=== PATIENT | male | born 1975 | race Caucasian/White ===

== ENCOUNTER 2022-10-15 12:02 | Inpatient (IN) | payer MEDICAID ==
[~2022-10-15] VITALS: Ht 172.7 cm; Wt 81.6 kg
[2022-10-15 14:58] LABS: BASOPHILS % 0.2 % (0.0-2.0); EOSINOPHILS % 2.7 % (0.0-5.0); LYMPHOCYTES % 14.7 % (20.0-50.0); MEAN CORPUSCULAR VOLUME 88.9 fL (80.0-94.0); MEAN PLATELET VOLUME 8.5 fl (7.4-10.4); MONOCYTES % 7.3 % (2.0-8.0); NEUTROPHILS % 75.1 % (40.0-76.0); PLATELET 62 x1000/uL (130-400); RED BLOOD CELL COUNT 2.59 mill/uL (4.7-6.1); RED CELL DISTRIBUTION WIDTH 16.6 % (11.6-14.6)
[2022-10-15] MEDS ORDERED: ACET-2708 MT (15:52)
[2022-10-15] MEDS ORDERED: ACETAMINOPHEN 325MG TABLET PO ONE (16:00)
[2022-10-15] MEDS ORDERED: DEXTROSE 50% WATER 50ML SYRINGE IV PRN (22:00)
[2022-10-15] MEDS ORDERED: IPRATROPIUM/ALBUTEROL 0.5-3(2.5)MG/3ML NEB HHN SCH (22:00)
[2022-10-15] MEDS ORDERED: ENOXAPARIN 40MG/0.4ML SYR SUBCUT SCH (22:00)
[2022-10-15] MEDS ORDERED: LORAZEPAM 2MG/ML CPJ IV PRN (22:00)
[2022-10-15] MEDS ORDERED: ACETAMINOPHEN 325MG TABLET PO PRN (22:00)
[2022-10-15] MEDS ORDERED: CLONIDINE 0.1MG TABLET PO PRN (22:00)
[2022-10-15 22:40] LABS: PHOSPHORUS 3.9 mg/dL (2.5-4.9)
[2022-10-15 23:32] LABS: BASOPHILS % 0.2 % (0.0-2.0); EOSINOPHILS % 2.8 % (0.0-5.0); HEMATOCRIT. 25.7 % (42.0-52.0); LYMPHOCYTES % 14.7 % (20.0-50.0); MEAN CORPUSCULAR HEMOGLOBIN 30.9 pg (28.0-32.0); MEAN CORPUSCULAR VOLUME 88.2 fL (80.0-94.0); MEAN PLATELET VOLUME 8.2 fl (7.4-10.4); MONOCYTES % 8.2 % (2.0-8.0); NEUTROPHILS % 74.1 % (40.0-76.0); PLATELET 79 x1000/uL (130-400); RED BLOOD CELL COUNT 2.91 mill/uL (4.7-6.1); RED CELL DISTRIBUTION WIDTH 16.8 % (11.6-14.6)
[2022-10-15 23:40] LABS: INR 1.5; PARTIAL THROMBOPLASTIN TIME 49.8 sec (23.4-31.0); PROTHROMBIN TIME 15.7 sec (9.6-11.0)
[2022-10-15 23:48] LABS: CREATINE KINASE 70 IU/L (39-308); CREATINE KINASE MB FRACTION 2.5 ng/mL (0.5-3.6)
[2022-10-16] MEDS ORDERED: MAGNESIUM 1 G PREMIX 100 ML IV NR
[2022-10-16 04:15] VITALS: BP 130/61
[2022-10-16] MEDS: BLOOD SUGAR DIAGNOSTIC STRIP TEST SCH ×4 (06:30→21:00)
[2022-10-16 08:00] VITALS: BP 117/55
[2022-10-16] MEDS: SODIUM BICARBONATE 650 MG TABLET PO SCH (09:47)
[2022-10-16] MEDS: FAMOTIDINE 20MG TABLET PO SCH (09:47)
[2022-10-16 10:32] LABS: BASOPHILS % 0.4 % (0.0-2.0); EOSINOPHILS % 3.6 % (0.0-5.0); HEMATOCRIT. 22.9 % (42.0-52.0); LYMPHOCYTES % 18.2 % (20.0-50.0); MEAN CORPUSCULAR HEMOGLOBIN 30.7 pg (28.0-32.0); MEAN CORPUSCULAR VOLUME 87.4 fL (80.0-94.0); MEAN PLATELET VOLUME 8.1 fl (7.4-10.4); MONOCYTES % 8.1 % (2.0-8.0); NEUTROPHILS % 69.7 % (40.0-76.0); PLATELET 76 x1000/uL (130-400); RED BLOOD CELL COUNT 2.62 mill/uL (4.7-6.1); RED CELL DISTRIBUTION WIDTH 17.1 % (11.6-14.6)
[2022-10-16 10:52] LABS: CREATINE KINASE MB FRACTION 2.8 ng/mL (0.5-3.6)
[2022-10-16 12:00] VITALS: BP 128/56
[2022-10-16 16:00] VITALS: BP 125/60
[2022-10-16] MEDS ORDERED: DEXTROSE 50% WATER 50ML SYRINGE IV PRN (17:15)
[2022-10-16] MEDS: INSULIN LISPRO 100 UNITS/ML SUBCUT SCH ×2 (17:50→22:00)
[2022-10-16 20:00] VITALS: BP 124/67
[2022-10-17] VITALS: BP 120/50
[2022-10-17] MEDS: SODIUM CHLORIDE 0.45% 1,000 ML IV SCH ×3 (02:50→23:15)
[2022-10-17 03:05] LABS: CHLORIDE 107 mEq/L (98-107)
[2022-10-17 03:16] LABS: CREATINE KINASE 46 IU/L (39-308); CREATINE KINASE MB FRACTION 2.7 ng/mL (0.5-3.6); ETHANOL BLOOD < 10 mg/dL
[2022-10-17] MEDS: BLOOD SUGAR DIAGNOSTIC STRIP TEST SCH ×4 (06:29→21:14)
[2022-10-17] MEDS: INSULIN LISPRO 100 UNITS/ML SUBCUT SCH ×4 (07:39→21:13)
[2022-10-17] MEDS: ALBUTEROL (0.083%) 2.5MG/3ML NEB HHN SCH ×4 (07:41→20:13)
[2022-10-17] MEDS: IPRATROPIUM BROMIDE (0.02%) 0.5MG/2.5ML NEB HHN SCH ×4 (07:41→20:13)
[2022-10-17 07:55] LABS: BASOPHILS % 0.3 % (0.0-2.0); EOSINOPHILS % 4.6 % (0.0-5.0); HEMATOCRIT. 24.4 % (42.0-52.0); HEMOGLOBIN. 8.4 g/dL (14.0-18.0); LYMPHOCYTES % 23.5 % (20.0-50.0); MEAN CORPUSCULAR HEMOGLOBIN 30.5 pg (28.0-32.0); MEAN CORPUSCULAR VOLUME 88.4 fL (80.0-94.0); MEAN PLATELET VOLUME 7.6 fl (7.4-10.4); MONOCYTES % 8.6 % (2.0-8.0); PLATELET 95 x1000/uL (130-400); RED BLOOD CELL COUNT 2.76 mill/uL (4.7-6.1); RED CELL DISTRIBUTION WIDTH 16.9 % (11.6-14.6)
[2022-10-17] MEDS: SODIUM BICARBONATE 650 MG TABLET PO SCH (08:49)
[2022-10-17] MEDS: FAMOTIDINE 20MG TABLET PO SCH (08:49)
[2022-10-17 09:05] LABS: T4 FREE 1.62 ng/dL (0.76-1.46)
[2022-10-17 09:14] LABS: VITAMIN B12 SERUM 1383 pg/mL (211-911)
[2022-10-17 12:00] VITALS: BP 120/50
[2022-10-17 15:58] VITALS: BP 128/59
[2022-10-18] MEDS: ALBUTEROL (0.083%) 2.5MG/3ML NEB HHN SCH ×7 (00:48→21:42)
[2022-10-18] MEDS: IPRATROPIUM BROMIDE (0.02%) 0.5MG/2.5ML NEB HHN SCH ×7 (00:49→21:42)
[2022-10-18 04:00] VITALS: BP 121/59
[2022-10-18] MEDS: BLOOD SUGAR DIAGNOSTIC STRIP TEST SCH ×4 (06:24→20:59)
[2022-10-18 07:21] LABS: BASOPHILS % 0.5 % (0.0-2.0); EOSINOPHILS % 2.8 % (0.0-5.0); HEMATOCRIT. 21.2 % (42.0-52.0); HEMOGLOBIN. 7.5 g/dL (14.0-18.0); LYMPHOCYTES % 23.3 % (20.0-50.0); MEAN CORPUSCULAR VOLUME 87.3 fL (80.0-94.0); MONOCYTES % 7.7 % (2.0-8.0); NEUTROPHILS % 65.7 % (40.0-76.0); PLATELET 79 x1000/uL (130-400); RED BLOOD CELL COUNT 2.43 mill/uL (4.7-6.1); RED CELL DISTRIBUTION WIDTH 16.5 % (11.6-14.6)
[2022-10-18] MEDS: INSULIN LISPRO 100 UNITS/ML SUBCUT SCH ×4 (07:50→20:59)
[2022-10-18 08:00] VITALS: BP 127/52
[2022-10-18 08:00] LABS: HEPATITIS B SURFACE ANTIGEN NEGATIVE
[2022-10-18] MEDS ORDERED: MAGNESIUM 2 G PREMIX 50 ML IV SCH (08:30)
[2022-10-18] MEDS: SODIUM CHLORIDE 0.45% 1,000 ML IV SCH ×2 (09:45→20:54)
[2022-10-18] MEDS: ASCORBIC ACID 250 MG TABLET PO SCH (09:50)
[2022-10-18] MEDS: FAMOTIDINE 20MG TABLET PO SCH (09:50)
[2022-10-18] MEDS: SODIUM BICARBONATE 650 MG TABLET PO SCH ×2 (09:55→14:13)
[2022-10-18 12:00] VITALS: BP 133/56
[2022-10-18 16:00] VITALS: BP 130/66
[2022-10-18 20:00] VITALS: BP 141/79
[2022-10-19] VITALS: BP 141/55
[2022-10-19] MEDS: ALBUTEROL (0.083%) 2.5MG/3ML NEB HHN SCH ×6 (00:52→22:55)
[2022-10-19] MEDS: IPRATROPIUM BROMIDE (0.02%) 0.5MG/2.5ML NEB HHN SCH ×6 (00:52→22:55)
[2022-10-19] MEDS: SODIUM CHLORIDE 0.45% 1,000 ML IV SCH (05:32)
[2022-10-19 07:25] LABS: BASOPHILS % 0.5 % (0.0-2.0); EOSINOPHILS % 4.2 % (0.0-5.0); HEMATOCRIT. 23.9 % (42.0-52.0); HEMOGLOBIN. 8.1 g/dL (14.0-18.0); LYMPHOCYTES % 27.6 % (20.0-50.0); MEAN CORPUSCULAR HEMOGLOBIN 30.6 pg (28.0-32.0); MEAN CORPUSCULAR VOLUME 90.5 fL (80.0-94.0); MONOCYTES % 8.4 % (2.0-8.0); NEUTROPHILS % 59.3 % (40.0-76.0); PLATELET 82 x1000/uL (130-400); RED BLOOD CELL COUNT 2.64 mill/uL (4.7-6.1); RED CELL DISTRIBUTION WIDTH 17.8 % (11.6-14.6)
[2022-10-19 07:37] LABS: PHOSPHORUS 3.6 mg/dL (2.5-4.9)
[2022-10-19] MEDS: INSULIN LISPRO 100 UNITS/ML SUBCUT SCH ×4 (07:50→20:58)
[2022-10-19 08:00] VITALS: BP 140/46
[2022-10-19] MEDS: BLOOD SUGAR DIAGNOSTIC STRIP TEST SCH ×4 (08:02→20:58)
[2022-10-19] MEDS: SODIUM BICARBONATE 650 MG TABLET PO SCH ×2 (09:00→18:48)
[2022-10-19] MEDS: ASCORBIC ACID 250 MG TABLET PO SCH (09:00)
[2022-10-19] MEDS: FAMOTIDINE 20MG TABLET PO SCH (09:00)
[2022-10-19 11:58] VITALS: BP 120/54
[2022-10-19] MEDS ORDERED: MENTHOL/LANOLIN/CALAMINE/ZN OX OINT 71GM TOP PRN (15:00)
[2022-10-19 15:45] VITALS: BP 140/52
[2022-10-19 20:00] VITALS: BP 131/58
[2022-10-20] VITALS: BP 134/58
[2022-10-20] MEDS: IPRATROPIUM BROMIDE (0.02%) 0.5MG/2.5ML NEB HHN SCH ×5 (02:23→20:52)
[2022-10-20] MEDS: ALBUTEROL (0.083%) 2.5MG/3ML NEB HHN SCH ×5 (02:23→20:52)
[2022-10-20] MEDS: BLOOD SUGAR DIAGNOSTIC STRIP TEST SCH ×4 (06:44→21:00)
[2022-10-20 07:36] LABS: BASOPHILS % 0.5 % (0.0-2.0); CHLORIDE 107 mEq/L (98-107); HEMATOCRIT. 21.7 % (42.0-52.0); HEMOGLOBIN. 7.4 g/dL (14.0-18.0); LYMPHOCYTES % 24.2 % (20.0-50.0); MEAN CORPUSCULAR HEMOGLOBIN 30.6 pg (28.0-32.0); MEAN CORPUSCULAR VOLUME 89.3 fL (80.0-94.0); MONOCYTES % 6.5 % (2.0-8.0); NEUTROPHILS % 65.8 % (40.0-76.0); PLATELET 75 x1000/uL (130-400); RED BLOOD CELL COUNT 2.42 mill/uL (4.7-6.1); RED CELL DISTRIBUTION WIDTH 17.3 % (11.6-14.6)
[2022-10-20 07:44] LABS: PHOSPHORUS 3.8 mg/dL (2.5-4.9)
[2022-10-20] MEDS: INSULIN LISPRO 100 UNITS/ML SUBCUT SCH ×4 (07:50→21:00)
[2022-10-20 08:00] VITALS: BP 136/59
[2022-10-20] MEDS: ASCORBIC ACID 250 MG TABLET PO SCH (09:10)
[2022-10-20] MEDS: SODIUM BICARBONATE 650 MG TABLET PO SCH ×3 (09:10→17:00)
[2022-10-20] MEDS: FAMOTIDINE 20MG TABLET PO SCH (09:10)
[2022-10-20 12:00] VITALS: BP 122/52
[2022-10-20 16:00] VITALS: BP 116/74
[2022-10-21] MEDS: ALBUTEROL (0.083%) 2.5MG/3ML NEB HHN SCH ×2 (00:53→05:45)
[2022-10-21] MEDS: IPRATROPIUM BROMIDE (0.02%) 0.5MG/2.5ML NEB HHN SCH ×2 (00:53→05:45)
[2022-10-21 04:00] VITALS: BP 145/63
[2022-10-21 06:54] LABS: HEMATOCRIT 22.6 % (42.0-52.0); HEMOGLOBIN 7.8 g/dL (14.0-18.0); MEAN CORPUSCULAR HEMOGLOBIN 30.8 pg (28.0-32.0); MEAN CORPUSCULAR VOLUME 88.5 fL (80.0-94.0); PLATELET 90 x1000/uL (130-400); RED BLOOD CELL COUNT 2.55 mill/uL (4.7-6.1); RED CELL DISTRIBUTION WIDTH 17.5 % (11.6-14.6)
[2022-10-21] MEDS: BLOOD SUGAR DIAGNOSTIC STRIP TEST SCH ×3 (07:20→17:20)
[2022-10-21 07:37] LABS: CHLORIDE 114 mEq/L (98-107)
[2022-10-21] MEDS: INSULIN LISPRO 100 UNITS/ML SUBCUT SCH ×2 (07:50→12:50)
[2022-10-21 08:00] VITALS: BP 134/53
[2022-10-21] MEDS: ASCORBIC ACID 250 MG TABLET PO SCH (09:00)
[2022-10-21] MEDS: SODIUM BICARBONATE 650 MG TABLET PO SCH ×3 (09:00→17:00)
[2022-10-21] MEDS ORDERED: SODIUM POLYSTYRENE SULFONATE 15 G/60 ML BOT PO SCH (09:00)
[2022-10-21] MEDS: FAMOTIDINE 20MG TABLET PO SCH (09:00)
[2022-10-21 09:10] LABS: HIV SCREEN 4G Non Reactive (Non Reactive)
[2022-10-21 12:00] VITALS: BP 125/50
[2022-10-21 14:08] LABS: A/G RATIO 0.5 (0.7-1.7); ALBUMIN 1.9 g/dL (2.9-4.4); ALPHA-1-GLOBULIN 0.2 g/dL (0.0-0.4); ALPHA-2-GLOBULIN 0.3 g/dL (0.4-1.0); BETA GLOBULIN 0.9 g/dL (0.7-1.3); GAMMA GLOBULINS 2.2 g/dL (0.4-1.8); GLOBULIN TOTAL 3.6 g/dL (2.2-3.9); M-SPIKE Not Observed g/dL (Not Observed); TOTAL PROTEIN SERUM 5.5 g/dL (6.0-8.5)
[2022-10-21 16:00] VITALS: BP 129/50
[2022-10-21 20:00] VITALS: BP 119/59
[2022-10-22] VITALS: BP 145/69
[2022-10-22 04:00] VITALS: BP 128/89
[2022-10-22 08:00] VITALS: BP 134/55
[2022-10-22 08:10] LABS: BASOPHILS % 0.3 % (0.0-2.0); EOSINOPHILS % 2.9 % (0.0-5.0); HEMATOCRIT. 21.6 % (42.0-52.0); HEMOGLOBIN. 7.5 g/dL (14.0-18.0); MEAN CORPUSCULAR HEMOGLOBIN 31.2 pg (28.0-32.0); MEAN CORPUSCULAR VOLUME 89.6 fL (80.0-94.0); MEAN PLATELET VOLUME 7.4 fl (7.4-10.4); MONOCYTES % 6.1 % (2.0-8.0); NEUTROPHILS % 67.7 % (40.0-76.0); PLATELET 82 x1000/uL (130-400); RED BLOOD CELL COUNT 2.42 mill/uL (4.7-6.1); RED CELL DISTRIBUTION WIDTH 17.5 % (11.6-14.6)
[2022-10-22] MEDS ORDERED: LACTULOSE 20G/30ML UDC PO SCH (09:00)
[2022-10-22 09:05] LABS: CHLORIDE 114 mEq/L (98-107)
[2022-10-22 09:12] LABS: PHOSPHORUS 4.1 mg/dL (2.5-4.9)
[2022-10-22 12:00] VITALS: BP 134/57
[2022-10-22] MEDS: FAMOTIDINE 20MG TABLET PO SCH (14:32)
[2022-10-22] MEDS: ASCORBIC ACID 250 MG TABLET PO SCH (14:32)
[2022-10-22] MEDS: SODIUM BICARBONATE 650 MG TABLET PO SCH ×2 (14:32→18:42)
[2022-10-22] MEDS: ARIPIPRAZOLE 5MG TABLET PO SCH (14:32)
[2022-10-22 16:00] VITALS: BP 103/40
[2022-10-22] MEDS: BLOOD SUGAR DIAGNOSTIC STRIP TEST SCH ×2 (17:20→21:00)
[2022-10-22] MEDS: INSULIN LISPRO 100 UNITS/ML SUBCUT SCH ×3 (17:50→21:00)
[2022-10-22 20:00] VITALS: BP 128/68
[2022-10-23 04:00] VITALS: BP 131/78
[2022-10-23 07:14] LABS: BASOPHILS % 0.5 % (0.0-2.0); EOSINOPHILS % 3.6 % (0.0-5.0); HEMOGLOBIN. 7.9 g/dL (14.0-18.0); LYMPHOCYTES % 27.9 % (20.0-50.0); MEAN CORPUSCULAR HEMOGLOBIN 30.8 pg (28.0-32.0); MEAN CORPUSCULAR VOLUME 90.1 fL (80.0-94.0); MEAN PLATELET VOLUME 7.7 fl (7.4-10.4); MONOCYTES % 7.9 % (2.0-8.0); NEUTROPHILS % 60.1 % (40.0-76.0); PLATELET 86 x1000/uL (130-400); RED BLOOD CELL COUNT 2.55 mill/uL (4.7-6.1); RED CELL DISTRIBUTION WIDTH 17.5 % (11.6-14.6)
[2022-10-23] MEDS: BLOOD SUGAR DIAGNOSTIC STRIP TEST SCH ×4 (07:20→21:57)
[2022-10-23] MEDS: INSULIN LISPRO 100 UNITS/ML SUBCUT SCH ×4 (07:50→21:00)
[2022-10-23 08:00] VITALS: BP 141/59
[2022-10-23] MEDS: ASCORBIC ACID 250 MG TABLET PO SCH (09:00)
[2022-10-23] MEDS: FAMOTIDINE 20MG TABLET PO SCH (09:56)
[2022-10-23] MEDS: SODIUM BICARBONATE 650 MG TABLET PO SCH ×3 (09:56→18:12)
[2022-10-23] MEDS: ARIPIPRAZOLE 5MG TABLET PO SCH (09:56)
[2022-10-23] MEDS ORDERED: LACTULOSE ENEMA 1,000ML BOTTLE PR NR (11:15)
[2022-10-23 12:00] VITALS: BP 130/60
[2022-10-23 16:00] VITALS: BP 128/59
[2022-10-23] MEDS ORDERED: LACTULOSE ENEMA 1,000ML BOTTLE PR PRN (18:30)
[2022-10-23 20:00] VITALS: BP 119/87
[2022-10-23] MEDS ORDERED: LACTULOSE 20G/30ML UDC PO SCH (21:00)
[2022-10-24] VITALS: BP 130/62
[2022-10-24 04:00] VITALS: BP 142/67
[2022-10-24 07:11] LABS: HEMATOCRIT 22.5 % (42.0-52.0); HEMOGLOBIN 7.7 g/dL (14.0-18.0); MEAN CORPUSCULAR HEMOGLOBIN 30.6 pg (28.0-32.0); MEAN CORPUSCULAR VOLUME 89.1 fL (80.0-94.0); PLATELET 72 x1000/uL (130-400); RED BLOOD CELL COUNT 2.53 mill/uL (4.7-6.1); RED CELL DISTRIBUTION WIDTH 16.9 % (11.6-14.6)
[2022-10-24] MEDS: BLOOD SUGAR DIAGNOSTIC STRIP TEST SCH ×4 (07:20→21:00)
[2022-10-24 07:48] LABS: PHOSPHORUS 3.9 mg/dL (2.5-4.9)
[2022-10-24] MEDS: INSULIN LISPRO 100 UNITS/ML SUBCUT SCH ×4 (07:50→21:00)
[2022-10-24 08:00] VITALS: BP 123/63
[2022-10-24] MEDS: ASCORBIC ACID 250 MG TABLET PO SCH (09:00)
[2022-10-24] MEDS ORDERED: MAGNESIUM 1 G PREMIX 100 ML IV NR (09:00)
[2022-10-24] MEDS: SODIUM BICARBONATE 650 MG TABLET PO SCH ×3 (09:10→17:03)
[2022-10-24] MEDS: LACTULOSE 20G/30ML UDC PO SCH ×2 (09:10→17:10)
[2022-10-24] MEDS: FAMOTIDINE 20MG TABLET PO SCH (09:10)
[2022-10-24] MEDS: ARIPIPRAZOLE 5MG TABLET PO SCH (09:10)
[2022-10-24 12:00] VITALS: BP 126/50
[2022-10-24 16:00] VITALS: BP 124/60
[2022-10-25] MEDS: BLOOD SUGAR DIAGNOSTIC STRIP TEST SCH ×4 (07:16→21:00)
[2022-10-25] MEDS: INSULIN LISPRO 100 UNITS/ML SUBCUT SCH ×4 (07:50→21:00)
[2022-10-25 08:00] VITALS: BP_SYST 120; BP_SYST 96; BP_DIAS 51; BP_DIAS 56
[2022-10-25] MEDS: ASCORBIC ACID 250 MG TABLET PO SCH (09:00)
[2022-10-25 09:03] LABS: BASOPHILS % 0.4 % (0.0-2.0); EOSINOPHILS % 3.5 % (0.0-5.0); HEMATOCRIT. 23.5 % (42.0-52.0); HEMOGLOBIN. 8.2 g/dL (14.0-18.0); LYMPHOCYTES % 27.7 % (20.0-50.0); MEAN CORPUSCULAR VOLUME 88.5 fL (80.0-94.0); MEAN PLATELET VOLUME 7.6 fl (7.4-10.4); MONOCYTES % 8.9 % (2.0-8.0); NEUTROPHILS % 59.5 % (40.0-76.0); PLATELET 80 x1000/uL (130-400); RED BLOOD CELL COUNT 2.65 mill/uL (4.7-6.1); RED CELL DISTRIBUTION WIDTH 16.9 % (11.6-14.6)
[2022-10-25] MEDS: FAMOTIDINE 20MG TABLET PO SCH (09:13)
[2022-10-25] MEDS: ARIPIPRAZOLE 5MG TABLET PO SCH (09:13)
[2022-10-25] MEDS: SODIUM BICARBONATE 650 MG TABLET PO SCH ×3 (09:13→16:59)
[2022-10-25] MEDS: LACTULOSE 20G/30ML UDC PO SCH ×2 (09:13→16:58)
[2022-10-25 12:00] VITALS: BP 124/51
[2022-10-25 14:11] LABS: PHOSPHORUS 3.7 mg/dL (2.5-4.9)
[2022-10-25 16:00] VITALS: BP 134/59
[2022-10-25] MEDS: LACTULOSE ENEMA 1,000ML BOTTLE PR SCH (16:00)
[2022-10-25 20:00] VITALS: BP 142/63
[2022-10-26] VITALS: BP 131/55
[2022-10-26 04:00] VITALS: BP 124/54
[2022-10-26] MEDS: BLOOD SUGAR DIAGNOSTIC STRIP TEST SCH ×4 (06:57→21:00)
[2022-10-26 07:07] LABS: BASOPHILS % 0.4 % (0.0-2.0); EOSINOPHILS % 3.2 % (0.0-5.0); HEMATOCRIT. 21.9 % (42.0-52.0); HEMOGLOBIN. 7.6 g/dL (14.0-18.0); LYMPHOCYTES % 27.1 % (20.0-50.0); MEAN CORPUSCULAR HEMOGLOBIN 30.8 pg (28.0-32.0); MEAN CORPUSCULAR VOLUME 88.4 fL (80.0-94.0); MONOCYTES % 8.4 % (2.0-8.0); NEUTROPHILS % 60.9 % (40.0-76.0); PLATELET 65 x1000/uL (130-400); RED BLOOD CELL COUNT 2.47 mill/uL (4.7-6.1); RED CELL DISTRIBUTION WIDTH 17.4 % (11.6-14.6)
[2022-10-26] MEDS: INSULIN LISPRO 100 UNITS/ML SUBCUT SCH ×3 (07:50→21:00)
[2022-10-26 08:00] VITALS: BP 116/56
[2022-10-26 08:06] LABS: PHOSPHORUS 3.8 mg/dL (2.5-4.9)
[2022-10-26] MEDS: FAMOTIDINE 20MG TABLET PO SCH (09:00)
[2022-10-26] MEDS: ASCORBIC ACID 250 MG TABLET PO SCH (09:00)
[2022-10-26] MEDS: ARIPIPRAZOLE 5MG TABLET PO SCH (09:00)
[2022-10-26] MEDS: LACTULOSE 20G/30ML UDC PO SCH ×2 (09:00→17:32)
[2022-10-26] MEDS: SODIUM BICARBONATE 650 MG TABLET PO SCH ×2 (10:42→17:33)
[2022-10-26 12:00] VITALS: BP 125/51
[2022-10-26] MEDS ORDERED: MAGNESIUM OXIDE 400MG TABLET PO SCH (12:45)
[2022-10-26 16:00] VITALS: BP 118/59
[2022-10-26] MEDS: MAGNESIUM OXIDE 400MG TABLET PO SCH (17:00)
[2022-10-26 20:00] VITALS: BP 129/51
[2022-10-27] VITALS: BP 123/55
[2022-10-27 04:00] VITALS: BP 125/44
[2022-10-27 06:30] LABS: BASOPHILS % 0.5 % (0.0-2.0); EOSINOPHILS % 3.1 % (0.0-5.0); HEMATOCRIT. 21.7 % (42.0-52.0); HEMOGLOBIN. 7.4 g/dL (14.0-18.0); LYMPHOCYTES % 30.3 % (20.0-50.0); MEAN CORPUSCULAR HEMOGLOBIN 30.9 pg (28.0-32.0); MEAN CORPUSCULAR VOLUME 90.5 fL (80.0-94.0); MEAN PLATELET VOLUME 7.4 fl (7.4-10.4); MONOCYTES % 10.1 % (2.0-8.0); PLATELET 73 x1000/uL (130-400); RED CELL DISTRIBUTION WIDTH 17.5 % (11.6-14.6)
[2022-10-27 06:39] LABS: PHOSPHORUS 3.9 mg/dL (2.5-4.9)
[2022-10-27] MEDS: BLOOD SUGAR DIAGNOSTIC STRIP TEST SCH ×4 (07:20→20:15)
[2022-10-27] MEDS: INSULIN LISPRO 100 UNITS/ML SUBCUT SCH ×4 (07:50→20:15)
[2022-10-27 08:00] VITALS: BP 131/51
[2022-10-27] MEDS: MAGNESIUM OXIDE 400MG TABLET PO SCH ×2 (09:00→17:50)
[2022-10-27] MEDS: ASCORBIC ACID 250 MG TABLET PO SCH (09:00)
[2022-10-27] MEDS: FAMOTIDINE 20MG TABLET PO SCH (09:19)
[2022-10-27] MEDS: SODIUM BICARBONATE 650 MG TABLET PO SCH ×3 (09:19→17:49)
[2022-10-27] MEDS: ARIPIPRAZOLE 5MG TABLET PO SCH (09:19)
[2022-10-27] MEDS: LACTULOSE 20G/30ML UDC PO SCH ×2 (09:20→17:49)
[2022-10-27] MEDS ORDERED: MAGNESIUM 2 G PREMIX 50 ML IV NR (10:00)
[2022-10-27 12:00] VITALS: BP 133/68
[2022-10-27 16:00] VITALS: BP 108/50
[2022-10-27 20:00] VITALS: BP 114/53
[2022-10-28] VITALS: BP 122/49
[2022-10-28 04:00] VITALS: BP 126/51
[2022-10-28] MEDS: BLOOD SUGAR DIAGNOSTIC STRIP TEST SCH ×4 (05:41→21:00)
[2022-10-28] MEDS: INSULIN LISPRO 100 UNITS/ML SUBCUT SCH ×4 (05:42→21:00)
[2022-10-28 07:11] LABS: HEMOGLOBIN 7.3 g/dL (14.0-18.0); MEAN CORPUSCULAR HEMOGLOBIN 31.2 pg (28.0-32.0); MEAN CORPUSCULAR VOLUME 87.4 fL (80.0-94.0); PLATELET 52 x1000/uL (130-400); RED BLOOD CELL COUNT 2.35 mill/uL (4.7-6.1); RED CELL DISTRIBUTION WIDTH 17.2 % (11.6-14.6)
[2022-10-28 08:00] VITALS: BP 123/50
[2022-10-28 08:45] LABS: HEMATOCRIT 20.5 % (42.0-52.0)
[2022-10-28] MEDS: LACTULOSE ENEMA 1,000ML BOTTLE PR SCH (09:00)
[2022-10-28] MEDS: LACTULOSE 20G/30ML UDC PO SCH ×2 (09:00→13:17)
[2022-10-28] MEDS: MAGNESIUM OXIDE 400MG TABLET PO SCH ×2 (09:52→18:07)
[2022-10-28] MEDS: ASCORBIC ACID 250 MG TABLET PO SCH (09:52)
[2022-10-28] MEDS: SODIUM BICARBONATE 650 MG TABLET PO SCH ×3 (09:52→18:07)
[2022-10-28] MEDS: ARIPIPRAZOLE 5MG TABLET PO SCH (09:52)
[2022-10-28] MEDS: FAMOTIDINE 20MG TABLET PO SCH (09:52)
[2022-10-28 10:49] LABS: PHOSPHORUS 3.6 mg/dL (2.5-4.9)
[2022-10-28 12:00] VITALS: BP 115/39
[2022-10-28 16:00] VITALS: BP 119/49
[2022-10-28 20:00] VITALS: BP 116/42
[2022-10-29] VITALS: BP 125/39
[2022-10-29] MEDS ORDERED: DEXTROSE 50% WATER 50ML SYRINGE IV PRN (00:30)
[2022-10-29 04:00] VITALS: BP 131/58
[2022-10-29] MEDS: BLOOD SUGAR DIAGNOSTIC STRIP TEST SCH ×4 (06:06→21:41)
[2022-10-29 08:00] VITALS: BP 133/50
[2022-10-29] MEDS: FAMOTIDINE 20MG TABLET PO SCH (08:10)
[2022-10-29] MEDS: LACTULOSE 20G/30ML UDC PO SCH ×2 (08:10→16:31)
[2022-10-29] MEDS: SODIUM BICARBONATE 650 MG TABLET PO SCH ×3 (08:10→16:31)
[2022-10-29] MEDS: ARIPIPRAZOLE 5MG TABLET PO SCH (08:10)
[2022-10-29] MEDS: ASCORBIC ACID 250 MG TABLET PO SCH (08:10)
[2022-10-29] MEDS: MAGNESIUM OXIDE 400MG TABLET PO SCH ×2 (08:11→16:31)
[2022-10-29 08:39] LABS: HEMATOCRIT 21.8 % (42.0-52.0); HEMOGLOBIN 7.5 g/dL (14.0-18.0); MEAN CORPUSCULAR HEMOGLOBIN 30.8 pg (28.0-32.0); MEAN CORPUSCULAR VOLUME 89.5 fL (80.0-94.0); PLATELET 60 x1000/uL (130-400); RED BLOOD CELL COUNT 2.44 mill/uL (4.7-6.1); RED CELL DISTRIBUTION WIDTH 17.5 % (11.6-14.6)
[2022-10-29] MEDS: LACTULOSE ENEMA 1,000ML BOTTLE PR SCH (09:00)
[2022-10-29 09:15] LABS: CHLORIDE 106 mEq/L (98-107)
[2022-10-29 12:00] VITALS: BP 116/60
[2022-10-29 16:00] VITALS: BP 126/44
[2022-10-29] MEDS: INSULIN LISPRO 100 UNITS/ML SUBCUT SCH ×2 (17:50→21:00)
[2022-10-29 20:00] VITALS: BP 131/80
[2022-10-29] MEDS: RIFAXIMIN 550 MG TABLET PO SCH (21:41)
[2022-10-30] VITALS: BP 125/56
[2022-10-30 04:00] VITALS: BP 143/53
[2022-10-30 05:58] LABS: HEMATOCRIT 22.3 % (42.0-52.0); HEMOGLOBIN 7.7 g/dL (14.0-18.0); MEAN CORPUSCULAR VOLUME 89.5 fL (80.0-94.0); PLATELET 72 x1000/uL (130-400); RED CELL DISTRIBUTION WIDTH 17.7 % (11.6-14.6)
[2022-10-30] MEDS: BLOOD SUGAR DIAGNOSTIC STRIP TEST SCH ×4 (07:45→21:52)
[2022-10-30] MEDS: INSULIN LISPRO 100 UNITS/ML SUBCUT SCH ×4 (07:45→21:00)
[2022-10-30 08:00] VITALS: BP 128/50
[2022-10-30 08:57] LABS: CHLORIDE 105 mEq/L (98-107); PHOSPHORUS 2.8 mg/dL (2.5-4.9)
[2022-10-30] MEDS: LACTULOSE ENEMA 1,000ML BOTTLE PR SCH (09:00)
[2022-10-30] MEDS: RIFAXIMIN 550 MG TABLET PO SCH ×2 (09:20→21:53)
[2022-10-30] MEDS: ARIPIPRAZOLE 5MG TABLET PO SCH (09:20)
[2022-10-30] MEDS: SODIUM BICARBONATE 650 MG TABLET PO SCH ×3 (09:20→16:31)
[2022-10-30] MEDS: ASCORBIC ACID 250 MG TABLET PO SCH (09:21)
[2022-10-30] MEDS: FAMOTIDINE 20MG TABLET PO SCH (09:21)
[2022-10-30] MEDS: MAGNESIUM OXIDE 400MG TABLET PO SCH ×2 (09:21→16:31)
[2022-10-30] MEDS: SODIUM CHLORIDE 0.9% 1,000 ML IV SCH (09:26)
[2022-10-30] MEDS: LACTULOSE 20G/30ML UDC PO SCH ×2 (09:26→16:28)
[2022-10-30] MEDS ORDERED: LACTULOSE ENEMA 1,000ML BOTTLE PR NR (10:00)
[2022-10-30 11:45] VITALS: BP 133/55
[2022-10-30 12:00] VITALS: BP_SYST 120; BP_SYST 127; BP_SYST 137; BP_DIAS 38; BP_DIAS 53; BP_DIAS 54
[2022-10-30 16:00] VITALS: BP 123/62
[2022-10-31] VITALS: BP 134/72
[2022-10-31] MEDS: SODIUM CHLORIDE 0.9% 1,000 ML IV SCH ×2 (00:55→17:02)
[2022-10-31 04:00] VITALS: BP 148/66
[2022-10-31 06:32] LABS: BASOPHILS % 0.3 % (0.0-2.0); EOSINOPHILS % 2.7 % (0.0-5.0); HEMATOCRIT. 21.3 % (42.0-52.0); HEMOGLOBIN. 7.4 g/dL (14.0-18.0); MEAN CORPUSCULAR VOLUME 89.3 fL (80.0-94.0); MEAN PLATELET VOLUME 8.1 fl (7.4-10.4); MONOCYTES % 7.4 % (2.0-8.0); NEUTROPHILS % 61.6 % (40.0-76.0); PLATELET 74 x1000/uL (130-400); RED BLOOD CELL COUNT 2.38 mill/uL (4.7-6.1); RED CELL DISTRIBUTION WIDTH 18.1 % (11.6-14.6)
[2022-10-31] MEDS: INSULIN LISPRO 100 UNITS/ML SUBCUT SCH ×5 (06:36→21:08)
[2022-10-31] MEDS: BLOOD SUGAR DIAGNOSTIC STRIP TEST SCH ×5 (06:36→21:08)
[2022-10-31 08:00] VITALS: BP_SYST 118; BP_SYST 139; BP_DIAS 44; BP_DIAS 51
[2022-10-31] MEDS: LACTULOSE 20G/30ML UDC PO SCH ×2 (08:58→17:37)
[2022-10-31] MEDS: FAMOTIDINE 20MG TABLET PO SCH (08:58)
[2022-10-31] MEDS: ARIPIPRAZOLE 5MG TABLET PO SCH (08:58)
[2022-10-31] MEDS: ASCORBIC ACID 250 MG TABLET PO SCH (08:58)
[2022-10-31] MEDS: MAGNESIUM OXIDE 400MG TABLET PO SCH ×2 (08:59→17:00)
[2022-10-31] MEDS: LACTULOSE ENEMA 1,000ML BOTTLE PR SCH (09:00)
[2022-10-31 09:10] LABS: CHLORIDE 107 mEq/L (98-107)
[2022-10-31 09:24] LABS: PHOSPHORUS 3.2 mg/dL (2.5-4.9)
[2022-10-31] MEDS: RIFAXIMIN 550 MG TABLET PO SCH ×2 (10:20→20:42)
[2022-10-31] MEDS: SODIUM BICARBONATE 650 MG TABLET PO SCH ×3 (10:20→17:38)
[2022-10-31 12:00] VITALS: BP 133/55
[2022-10-31 16:00] VITALS: BP 120/55
[2022-10-31 20:00] VITALS: BP 109/59
[2022-10-31] MEDS: EPOETIN ALFA-EPBX 4,000 UNIT/ML VIAL SUBCUT SCH (20:42)
[2022-11-01] VITALS: BP 115/77
[2022-11-01 04:00] VITALS: BP 128/70
[2022-11-01 07:04] LABS: BASOPHILS % 0.3 % (0.0-2.0); EOSINOPHILS % 3.3 % (0.0-5.0); HEMATOCRIT. 21.4 % (42.0-52.0); HEMOGLOBIN. 7.5 g/dL (14.0-18.0); LYMPHOCYTES % 31.9 % (20.0-50.0); MEAN CORPUSCULAR HEMOGLOBIN 31.2 pg (28.0-32.0); MEAN CORPUSCULAR VOLUME 88.9 fL (80.0-94.0); MEAN PLATELET VOLUME 7.9 fl (7.4-10.4); NEUTROPHILS % 56.5 % (40.0-76.0); PLATELET 78 x1000/uL (130-400); RED CELL DISTRIBUTION WIDTH 18.3 % (11.6-14.6)
[2022-11-01 07:07] LABS: CHLORIDE 109 mEq/L (98-107)
[2022-11-01 07:16] LABS: PHOSPHORUS 3.5 mg/dL (2.5-4.9)
[2022-11-01 08:00] VITALS: BP 122/76
[2022-11-01] MEDS: ARIPIPRAZOLE 5MG TABLET PO SCH (09:05)
[2022-11-01] MEDS: ASCORBIC ACID 250 MG TABLET PO SCH (09:05)
[2022-11-01] MEDS: FAMOTIDINE 20MG TABLET PO SCH (09:06)
[2022-11-01] MEDS: RIFAXIMIN 550 MG TABLET PO SCH ×2 (09:06→20:36)
[2022-11-01] MEDS: LACTULOSE 20G/30ML UDC PO SCH ×2 (09:06→16:58)
[2022-11-01] MEDS: SODIUM BICARBONATE 650 MG TABLET PO SCH ×3 (09:06→16:58)
[2022-11-01] MEDS: MAGNESIUM OXIDE 400MG TABLET PO SCH ×2 (09:07→16:58)
[2022-11-01] MEDS ORDERED: SODIUM POLYSTYRENE SULFONATE 15 G/60 ML BOT PO NR (10:00)
[2022-11-01] MEDS: LACTULOSE ENEMA 1,000ML BOTTLE PR NR ×2 (10:30→12:11)
[2022-11-01] MEDS: BLOOD SUGAR DIAGNOSTIC STRIP TEST SCH ×3 (11:45→20:36)
[2022-11-01 12:00] VITALS: BP 116/54
[2022-11-01] MEDS: INSULIN LISPRO 100 UNITS/ML SUBCUT SCH ×3 (12:15→20:36)
[2022-11-01] MEDS ORDERED: ALBUTEROL (0.5%) 2.5MG/0.5ML NEB HHN NR (13:00)
[2022-11-01 16:00] VITALS: BP 125/57
[2022-11-01 20:10] VITALS: BP 165/83
[2022-11-02 04:00] VITALS: BP 149/62
[2022-11-02] MEDS: INSULIN LISPRO 100 UNITS/ML SUBCUT SCH ×4 (05:54→21:00)
[2022-11-02] MEDS: BLOOD SUGAR DIAGNOSTIC STRIP TEST SCH ×4 (05:54→21:25)
[2022-11-02 06:51] LABS: CHLORIDE 111 mEq/L (98-107)
[2022-11-02 06:59] LABS: BASOPHILS % 0.4 % (0.0-2.0); EOSINOPHILS % 3.5 % (0.0-5.0); LYMPHOCYTES % 29.6 % (20.0-50.0); MEAN CORPUSCULAR HEMOGLOBIN 31.1 pg (28.0-32.0); MEAN CORPUSCULAR VOLUME 89.6 fL (80.0-94.0); MEAN PLATELET VOLUME 7.3 fl (7.4-10.4); MONOCYTES % 8.8 % (2.0-8.0); NEUTROPHILS % 57.7 % (40.0-76.0); PLATELET 72 x1000/uL (130-400); RED BLOOD CELL COUNT 2.27 mill/uL (4.7-6.1)
[2022-11-02 07:03] LABS: PHOSPHORUS 3.7 mg/dL (2.5-4.9)
[2022-11-02 08:00] VITALS: BP 138/40
[2022-11-02 08:03] LABS: HEMATOCRIT. 20.4 % (42.0-52.0); HEMOGLOBIN. 7.1 g/dL (14.0-18.0)
[2022-11-02] MEDS: LACTULOSE ENEMA 1,000ML BOTTLE PR SCH (09:00)
[2022-11-02] MEDS: LACTULOSE 20G/30ML UDC PO SCH ×3 (09:14→16:42)
[2022-11-02] MEDS: MAGNESIUM OXIDE 400MG TABLET PO SCH ×2 (09:15→16:42)
[2022-11-02] MEDS: ASCORBIC ACID 250 MG TABLET PO SCH (09:15)
[2022-11-02] MEDS: SODIUM BICARBONATE 650 MG TABLET PO SCH ×3 (09:15→16:42)
[2022-11-02] MEDS: FAMOTIDINE 20MG TABLET PO SCH (09:15)
[2022-11-02] MEDS: ARIPIPRAZOLE 5MG TABLET PO SCH (09:15)
[2022-11-02] MEDS: RIFAXIMIN 550 MG TABLET PO SCH ×2 (09:15→20:49)
[2022-11-02 12:00] VITALS: BP 125/53
[2022-11-02 16:00] VITALS: BP 127/48
[2022-11-02] MEDS: FERROUS SULFATE 325MG TABLET PO SCH (16:42)
[2022-11-02 19:13] LABS: HEMATOCRIT 21.1 % (42.0-52.0); HEMOGLOBIN 7.2 g/dL (14.0-18.0)
[2022-11-02 20:00] VITALS: BP 117/51
[2022-11-02 21:54] LABS: CLARITY URINE CLOUDY (CLEAR); COLOR URINE RED (YELLOW); KETONES URINE NEGATIVE (NEGATIVE); LEUKOCYTE ESTERASE URINE 3+ (NEGATIVE); NITRITE URINE NEGATIVE (NEGATIVE); OCCULT BLOOD URINE 3+ (NEGATIVE); PH URINE 7.5 (4.5-8.0); PROTEIN URINE 3+ (NEGATIVE); SPECIFIC GRAVITY URINE 1.012 (1.005-1.030)
[2022-11-02 23:38] LABS: HEMOGLOBIN 6.5 g/dL (14.0-18.0)
[2022-11-02 23:39] LABS: HEMATOCRIT 18.8 % (42.0-52.0)
[2022-11-03] VITALS (10 sets, daily range): BP systolic 105–140; BP diastolic 32–55
[2022-11-03] MEDS: SODIUM CHLORIDE 0.9% 1,000 ML IV SCH ×4 (02:00→21:16)
[2022-11-03 03:46] LABS: CHLORIDE 111 mEq/L (98-107)
[2022-11-03 03:53] LABS: PHOSPHORUS 3.5 mg/dL (2.5-4.9)
[2022-11-03 03:58] LABS: MEAN CORPUSCULAR HEMOGLOBIN 30.7 pg (28.0-32.0); MEAN CORPUSCULAR VOLUME 89.4 fL (80.0-94.0); PLATELET 70 x1000/uL (130-400); RED CELL DISTRIBUTION WIDTH 17.9 % (11.6-14.6)
[2022-11-03 04:10] LABS: HEMATOCRIT 20.5 % (42.0-52.0)
[2022-11-03] MEDS: FERROUS SULFATE 325MG TABLET PO SCH ×3 (06:05→18:25)
[2022-11-03] MEDS: INSULIN LISPRO 100 UNITS/ML SUBCUT SCH ×4 (07:15→21:00)
[2022-11-03] MEDS: BLOOD SUGAR DIAGNOSTIC STRIP TEST SCH ×4 (07:21→20:51)
[2022-11-03] MEDS: LACTULOSE ENEMA 1,000ML BOTTLE PR SCH (09:00)
[2022-11-03] MEDS ORDERED: SODIUM POLYSTYRENE SULFONATE 15 G/60 ML BOT PO NR (10:00)
[2022-11-03] MEDS: SODIUM BICARBONATE 650 MG TABLET PO SCH ×3 (10:26→18:25)
[2022-11-03] MEDS: MAGNESIUM OXIDE 400MG TABLET PO SCH ×2 (10:26→17:00)
[2022-11-03] MEDS: RIFAXIMIN 550 MG TABLET PO SCH ×2 (10:26→20:51)
[2022-11-03] MEDS: ASCORBIC ACID 250 MG TABLET PO SCH (10:26)
[2022-11-03] MEDS: LACTULOSE 20G/30ML UDC PO SCH ×3 (10:26→23:52)
[2022-11-03] MEDS: FAMOTIDINE 20MG TABLET PO SCH (10:26)
[2022-11-03] MEDS: ARIPIPRAZOLE 5MG TABLET PO SCH (10:26)
[2022-11-03 15:00] LABS: HEMATOCRIT 22.8 % (42.0-52.0); HEMOGLOBIN 7.8 g/dL (14.0-18.0)
[2022-11-03] MEDS ORDERED: ONDANSETRON HCL 4MG TABLET PO PRN (16:00)
[2022-11-03] MEDS ORDERED: LACTULOSE 20G/30ML UDC NG NR (16:15)
[2022-11-03] MEDS: CEFTRIAXONE 1,000 MG in DEXTROSE 5% WATER 50 ML IV SCH (18:25)
[2022-11-03 20:45] LABS: INR 1.4
[2022-11-03] MEDS: EPOETIN ALFA-EPBX 4,000 UNIT/ML VIAL SUBCUT SCH (20:51)
[2022-11-03] MEDS: PHYTONADIONE 10MG/ML AMP SUBCUT SCH (23:51)
[2022-11-04] VITALS (7 sets, daily range): BP systolic 125–156; BP diastolic 50–65
[2022-11-04 06:44] LABS: BASOPHILS % 0.2 % (0.0-2.0); EOSINOPHILS % 3.3 % (0.0-5.0); HEMATOCRIT. 23.7 % (42.0-52.0); HEMOGLOBIN. 8.3 g/dL (14.0-18.0); LYMPHOCYTES % 25.8 % (20.0-50.0); MEAN CORPUSCULAR HEMOGLOBIN 30.1 pg (28.0-32.0); MEAN CORPUSCULAR VOLUME 86.4 fL (80.0-94.0); MONOCYTES % 8.1 % (2.0-8.0); NEUTROPHILS % 62.6 % (40.0-76.0); PLATELET 51 x1000/uL (130-400); RED BLOOD CELL COUNT 2.74 mill/uL (4.7-6.1); RED CELL DISTRIBUTION WIDTH 19.1 % (11.6-14.6)
[2022-11-04] MEDS: INSULIN LISPRO 100 UNITS/ML SUBCUT SCH ×4 (06:50→20:53)
[2022-11-04] MEDS: BLOOD SUGAR DIAGNOSTIC STRIP TEST SCH ×4 (06:50→20:51)
[2022-11-04] MEDS: SODIUM BICARBONATE 650 MG TABLET PO SCH ×3 (09:00→17:27)
[2022-11-04] MEDS: MAGNESIUM OXIDE 400MG TABLET PO SCH ×2 (10:16→17:28)
[2022-11-04] MEDS: ASCORBIC ACID 250 MG TABLET PO SCH (10:16)
[2022-11-04] MEDS: ARIPIPRAZOLE 5MG TABLET PO SCH (10:19)
[2022-11-04] MEDS: FERROUS SULFATE 325MG TABLET PO SCH ×3 (10:19→17:26)
[2022-11-04] MEDS: LACTULOSE 20G/30ML UDC PO SCH ×3 (10:19→17:27)
[2022-11-04] MEDS: FAMOTIDINE 20MG TABLET PO SCH (10:20)
[2022-11-04] MEDS: SODIUM CHLORIDE 0.9% 1,000 ML IV SCH ×2 (10:26→20:52)
[2022-11-04 11:13] LABS: CHLORIDE 113 mEq/L (98-107)
[2022-11-04 11:29] LABS: PHOSPHORUS 3.4 mg/dL (2.5-4.9)
[2022-11-04 18:07] LABS: HEPATITIS B SURFACE ANTIGEN NEGATIVE
[2022-11-04] MEDS: CEFTRIAXONE 1,000 MG in DEXTROSE 5% WATER 50 ML IV SCH (18:16)
[2022-11-04] MEDS: RIFAXIMIN 550 MG TABLET PO SCH (20:51)
[2022-11-04] MEDS: PHYTONADIONE 10MG/ML AMP SUBCUT SCH (23:43)
[2022-11-05] VITALS (9 sets, daily range): BP systolic 85–158; BP diastolic 36–65
[2022-11-05] MEDS: SODIUM CHLORIDE 0.9% 1,000 ML IV SCH (05:51)
[2022-11-05] MEDS: BLOOD SUGAR DIAGNOSTIC STRIP TEST SCH ×4 (07:17→20:46)
[2022-11-05] MEDS: INSULIN LISPRO 100 UNITS/ML SUBCUT SCH ×4 (07:50→20:46)
[2022-11-05 08:19] LABS: BASOPHILS % 0.4 % (0.0-2.0); EOSINOPHILS % 5.1 % (0.0-5.0); HEMATOCRIT. 22.4 % (42.0-52.0); HEMOGLOBIN. 7.7 g/dL (14.0-18.0); LYMPHOCYTES % 28.6 % (20.0-50.0); MEAN CORPUSCULAR HEMOGLOBIN 29.9 pg (28.0-32.0); MEAN CORPUSCULAR VOLUME 87.4 fL (80.0-94.0); MEAN PLATELET VOLUME 7.5 fl (7.4-10.4); MONOCYTES % 9.1 % (2.0-8.0); NEUTROPHILS % 56.8 % (40.0-76.0); PLATELET 65 x1000/uL (130-400); RED BLOOD CELL COUNT 2.57 mill/uL (4.7-6.1); RED CELL DISTRIBUTION WIDTH 19.5 % (11.6-14.6)
[2022-11-05 08:28] LABS: INR 1.5; PROTHROMBIN TIME 15.3 sec (9.6-11.0)
[2022-11-05] MEDS: ARIPIPRAZOLE 5MG TABLET PO SCH (08:42)
[2022-11-05] MEDS: LACTULOSE 20G/30ML UDC PO SCH ×3 (08:43→17:29)
[2022-11-05] MEDS: MAGNESIUM OXIDE 400MG TABLET PO SCH ×2 (08:43→17:00)
[2022-11-05] MEDS: RIFAXIMIN 550 MG TABLET PO SCH ×2 (08:44→20:46)
[2022-11-05] MEDS: ASCORBIC ACID 250 MG TABLET PO SCH (08:44)
[2022-11-05] MEDS: SODIUM BICARBONATE 650 MG TABLET PO SCH ×3 (08:44→17:29)
[2022-11-05] MEDS: FERROUS SULFATE 325MG TABLET PO SCH ×3 (08:44→17:29)
[2022-11-05] MEDS: FAMOTIDINE 20MG TABLET PO SCH (08:47)
[2022-11-05 09:10] LABS: PHOSPHORUS 3.4 mg/dL (2.5-4.9)
[2022-11-05] MEDS ORDERED: DEXT 5%/0.45% NACL 500ML 500 ML IV ONE (11:30)
[2022-11-05] MEDS ORDERED: DEXT 5%/0.9% NACL 500 ML IV ONE (11:30)
[2022-11-05] MEDS: ACETAMINOPHEN 325MG TABLET PO PRN ×2 (13:40→18:43)
[2022-11-05] MEDS: OCTREOTIDE 1,000 MCG in SODIUM CHLORIDE 0.9% 100 ML IV SCH (17:22)
[2022-11-05] MEDS: CEFTRIAXONE 1,000 MG in DEXTROSE 5% WATER 50 ML IV SCH (18:43)
[2022-11-05] MEDS: EPOETIN ALFA-EPBX 4,000 UNIT/ML VIAL SUBCUT SCH (20:45)
[2022-11-05] MEDS: PHYTONADIONE 10MG/ML AMP SUBCUT SCH (23:43)
[2022-11-06] VITALS (11 sets, daily range): BP systolic 126–161; BP diastolic 40–69
[2022-11-06 03:42] LABS: BASOPHILS % 0.3 % (0.0-2.0); HEMATOCRIT. 23.5 % (42.0-52.0); HEMOGLOBIN. 7.9 g/dL (14.0-18.0); LYMPHOCYTES % 26.7 % (20.0-50.0); MEAN CORPUSCULAR HEMOGLOBIN 29.6 pg (28.0-32.0); MEAN PLATELET VOLUME 8.1 fl (7.4-10.4); MONOCYTES % 7.1 % (2.0-8.0); NEUTROPHILS % 60.9 % (40.0-76.0); PLATELET 68 x1000/uL (130-400); RED BLOOD CELL COUNT 2.67 mill/uL (4.7-6.1)
[2022-11-06 03:48] LABS: INR 1.4; PROTHROMBIN TIME 14.6 sec (9.6-11.0)
[2022-11-06] MEDS: BLOOD SUGAR DIAGNOSTIC STRIP TEST SCH ×4 (07:01→21:14)
[2022-11-06] MEDS: INSULIN LISPRO 100 UNITS/ML SUBCUT SCH ×4 (07:50→21:31)
[2022-11-06] MEDS: FERROUS SULFATE 325MG TABLET PO SCH ×3 (07:50→18:59)
[2022-11-06] MEDS ORDERED: DEXTROSE 5% WATER 1,000 ML IV SCH (08:30)
[2022-11-06] MEDS: SODIUM BICARBONATE 650 MG TABLET PO SCH ×3 (09:00→18:58)
[2022-11-06] MEDS: MAGNESIUM OXIDE 400MG TABLET PO SCH ×2 (09:00→17:00)
[2022-11-06] MEDS: LACTULOSE 20G/30ML UDC PO SCH ×3 (09:00→17:00)
[2022-11-06] MEDS: ASCORBIC ACID 250 MG TABLET PO SCH (09:00)
[2022-11-06] MEDS: RIFAXIMIN 550 MG TABLET PO SCH ×2 (15:44→21:29)
[2022-11-06] MEDS: FAMOTIDINE 20MG TABLET PO SCH (15:45)
[2022-11-06] MEDS: ARIPIPRAZOLE 5MG TABLET PO SCH (15:45)
[2022-11-06] MEDS: CEFTRIAXONE 1,000 MG in DEXTROSE 5% WATER 50 ML IV SCH (18:59)
[2022-11-06 20:48] LABS: HEMATOCRIT 23.5 % (42.0-52.0); HEMOGLOBIN 7.8 g/dL (14.0-18.0); MEAN CORPUSCULAR HEMOGLOBIN 30.5 pg (28.0-32.0); MEAN CORPUSCULAR VOLUME 91.4 fL (80.0-94.0); PLATELET 53 x1000/uL (130-400); RED BLOOD CELL COUNT 2.57 mill/uL (4.7-6.1); RED CELL DISTRIBUTION WIDTH 19.4 % (11.6-14.6)
[2022-11-06] MEDS: OCTREOTIDE 1,000 MCG in SODIUM CHLORIDE 0.9% 100 ML IV SCH (23:12)
[2022-11-07] VITALS: BP 118/61
[2022-11-07 00:53] LABS: HEMATOCRIT 21.3 % (42.0-52.0); HEMOGLOBIN 7.4 g/dL (14.0-18.0); MEAN CORPUSCULAR HEMOGLOBIN 30.5 pg (28.0-32.0); PLATELET 51 x1000/uL (130-400); RED BLOOD CELL COUNT 2.42 mill/uL (4.7-6.1); RED CELL DISTRIBUTION WIDTH 19.9 % (11.6-14.6)
[2022-11-07 04:00] VITALS: BP 136/56
[2022-11-07] MEDS: BLOOD SUGAR DIAGNOSTIC STRIP TEST SCH ×4 (07:49→20:58)
[2022-11-07] MEDS: INSULIN LISPRO 100 UNITS/ML SUBCUT SCH ×4 (07:50→21:00)
[2022-11-07] MEDS: FERROUS SULFATE 325MG TABLET PO SCH ×3 (07:50→17:58)
[2022-11-07 08:00] VITALS: BP 142/60
[2022-11-07] MEDS ORDERED: PANTOPRAZOLE SODIUM 40 MG/VIAL IV SCH (08:00)
[2022-11-07] MEDS: MAGNESIUM OXIDE 400MG TABLET PO SCH ×2 (09:00→17:58)
[2022-11-07] MEDS: PANTOPRAZOLE SODIUM 40 MG/VIAL IV SCH ×2 (09:00→17:49)
[2022-11-07] MEDS: LACTULOSE 20G/30ML UDC PO SCH ×3 (09:00→17:49)
[2022-11-07] MEDS: SODIUM BICARBONATE 650 MG TABLET PO SCH ×3 (09:00→17:49)
[2022-11-07] MEDS: RIFAXIMIN 550 MG TABLET PO SCH ×2 (09:00→20:58)
[2022-11-07 12:00] VITALS: BP 144/57
[2022-11-07] MEDS ORDERED: PROPOFOL 200MG/20ML VIAL IV ONE (12:26)
[2022-11-07] MEDS ORDERED: MIDAZOLAM HCL 5 MG/5 ML VIAL ONE (12:27)
[2022-11-07] MEDS ORDERED: EPHEDRINE SULFATE 50MG/ML VIAL ONE (12:29)
[2022-11-07 16:00] VITALS: BP 129/46
[2022-11-07] MEDS: ASCORBIC ACID 250 MG TABLET PO SCH (17:49)
[2022-11-07] MEDS: ARIPIPRAZOLE 5MG TABLET PO SCH (17:49)
[2022-11-07] MEDS: LEVOFLOXACIN 250MG TABLET PO SCH (17:49)
[2022-11-07] MEDS: AMLODIPINE 5MG TABLET PO SCH (17:50)
[2022-11-07 18:39] LABS: BASOPHILS % 0.5 % (0.0-2.0); EOSINOPHILS % 4.5 % (0.0-5.0); HEMATOCRIT. 22.3 % (42.0-52.0); HEMOGLOBIN. 7.4 g/dL (14.0-18.0); MEAN CORPUSCULAR HEMOGLOBIN 30.4 pg (28.0-32.0); MEAN CORPUSCULAR VOLUME 91.1 fL (80.0-94.0); MEAN PLATELET VOLUME 7.7 fl (7.4-10.4); MONOCYTES % 6.5 % (2.0-8.0); NEUTROPHILS % 64.5 % (40.0-76.0); PLATELET 56 x1000/uL (130-400); RED BLOOD CELL COUNT 2.45 mill/uL (4.7-6.1)
[2022-11-07 19:13] LABS: INR 1.5; PROTHROMBIN TIME 15.9 sec (9.6-11.0)
[2022-11-07 20:00] VITALS: BP 123/53
[2022-11-08] VITALS: BP 129/56
[2022-11-08 04:00] VITALS: BP 139/35
[2022-11-08] MEDS: BLOOD SUGAR DIAGNOSTIC STRIP TEST SCH ×4 (07:20→21:19)
[2022-11-08 07:42] LABS: BASOPHILS % 0.5 % (0.0-2.0); EOSINOPHILS % 4.5 % (0.0-5.0); HEMATOCRIT. 21.7 % (42.0-52.0); HEMOGLOBIN. 7.5 g/dL (14.0-18.0); LYMPHOCYTES % 20.7 % (20.0-50.0); MEAN CORPUSCULAR HEMOGLOBIN 30.6 pg (28.0-32.0); MEAN PLATELET VOLUME 7.9 fl (7.4-10.4); MONOCYTES % 7.7 % (2.0-8.0); NEUTROPHILS % 66.6 % (40.0-76.0); PLATELET 58 x1000/uL (130-400); RED BLOOD CELL COUNT 2.47 mill/uL (4.7-6.1); RED CELL DISTRIBUTION WIDTH 19.2 % (11.6-14.6)
[2022-11-08] MEDS: INSULIN LISPRO 100 UNITS/ML SUBCUT SCH ×4 (07:50→21:00)
[2022-11-08 08:00] VITALS: BP 141/65
[2022-11-08] MEDS: SODIUM BICARBONATE 650 MG TABLET PO SCH ×3 (08:30→18:33)
[2022-11-08] MEDS: RIFAXIMIN 550 MG TABLET PO SCH ×2 (08:31→21:19)
[2022-11-08] MEDS: MAGNESIUM OXIDE 400MG TABLET PO SCH ×2 (08:31→17:00)
[2022-11-08] MEDS: ASCORBIC ACID 250 MG TABLET PO SCH (08:31)
[2022-11-08] MEDS: AMLODIPINE 5MG TABLET PO SCH (08:31)
[2022-11-08] MEDS: FERROUS SULFATE 325MG TABLET PO SCH ×3 (08:31→18:33)
[2022-11-08] MEDS: ARIPIPRAZOLE 5MG TABLET PO SCH ×2 (08:31→18:33)
[2022-11-08] MEDS: LACTULOSE 20G/30ML UDC PO SCH ×3 (08:32→18:32)
[2022-11-08] MEDS: PANTOPRAZOLE SODIUM 40 MG/VIAL IV SCH ×2 (08:32→18:33)
[2022-11-08 12:00] VITALS: BP 137/58
[2022-11-08 16:00] VITALS: BP 128/61
[2022-11-08] MEDS: LEVOFLOXACIN 250MG TABLET PO SCH (18:33)
[2022-11-09] VITALS: BP 127/52
[2022-11-09 06:00] VITALS: BP 131/80
[2022-11-09 07:34] LABS: HEMATOCRIT 21.1 % (42.0-52.0); HEMOGLOBIN 7.3 g/dL (14.0-18.0); MEAN CORPUSCULAR HEMOGLOBIN 30.6 pg (28.0-32.0); MEAN CORPUSCULAR VOLUME 87.8 fL (80.0-94.0); PLATELET 55 x1000/uL (130-400); RED CELL DISTRIBUTION WIDTH 19.2 % (11.6-14.6)
[2022-11-09] MEDS: INSULIN LISPRO 100 UNITS/ML SUBCUT SCH ×4 (07:50→20:26)
[2022-11-09] MEDS: BLOOD SUGAR DIAGNOSTIC STRIP TEST SCH ×4 (07:52→20:26)
[2022-11-09 08:00] VITALS: BP 141/59
[2022-11-09] MEDS: ASCORBIC ACID 250 MG TABLET PO SCH (09:13)
[2022-11-09] MEDS: ARIPIPRAZOLE 5MG TABLET PO SCH ×2 (09:13→18:24)
[2022-11-09] MEDS: LACTULOSE 20G/30ML UDC PO SCH ×4 (09:13→18:24)
[2022-11-09] MEDS: FERROUS SULFATE 325MG TABLET PO SCH ×3 (09:13→18:24)
[2022-11-09] MEDS: PANTOPRAZOLE SODIUM 40 MG/VIAL IV SCH (09:13)
[2022-11-09] MEDS: SODIUM BICARBONATE 650 MG TABLET PO SCH ×3 (09:13→18:23)
[2022-11-09] MEDS: AMLODIPINE 5MG TABLET PO SCH (09:17)
[2022-11-09] MEDS: MAGNESIUM OXIDE 400MG TABLET PO SCH ×2 (09:17→17:00)
[2022-11-09 12:00] VITALS: BP 131/58
[2022-11-09 16:00] VITALS: BP 122/56
[2022-11-09] MEDS: LEVOFLOXACIN 250MG TABLET PO SCH (18:23)
[2022-11-09 20:00] VITALS: BP 121/55
[2022-11-09] MEDS: PANTOPRAZOLE 40MG DR TABLET PO SCH (20:26)
[2022-11-09] MEDS: RIFAXIMIN 550 MG TABLET PO SCH (20:26)
[2022-11-10 04:00] VITALS: BP 116/52
[2022-11-10] MEDS: BLOOD SUGAR DIAGNOSTIC STRIP TEST SCH ×4 (06:33→21:01)
[2022-11-10] MEDS: INSULIN LISPRO 100 UNITS/ML SUBCUT SCH ×4 (07:50→21:00)
[2022-11-10 07:59] LABS: BASOPHILS % 0.3 % (0.0-2.0); EOSINOPHILS % 4.4 % (0.0-5.0); HEMATOCRIT. 21.4 % (42.0-52.0); HEMOGLOBIN. 7.4 g/dL (14.0-18.0); LYMPHOCYTES % 23.5 % (20.0-50.0); MEAN CORPUSCULAR HEMOGLOBIN 30.3 pg (28.0-32.0); MEAN CORPUSCULAR VOLUME 87.6 fL (80.0-94.0); MEAN PLATELET VOLUME 7.8 fl (7.4-10.4); MONOCYTES % 8.5 % (2.0-8.0); NEUTROPHILS % 63.3 % (40.0-76.0); PLATELET 61 x1000/uL (130-400); RED BLOOD CELL COUNT 2.44 mill/uL (4.7-6.1); RED CELL DISTRIBUTION WIDTH 19.9 % (11.6-14.6)
[2022-11-10 08:00] VITALS: BP 131/56
[2022-11-10] MEDS: SODIUM BICARBONATE 650 MG TABLET PO SCH ×3 (08:35→16:40)
[2022-11-10] MEDS: LACTULOSE 20G/30ML UDC PO SCH ×3 (08:35→16:38)
[2022-11-10] MEDS: RIFAXIMIN 550 MG TABLET PO SCH ×2 (08:35→20:58)
[2022-11-10] MEDS: PANTOPRAZOLE 40MG DR TABLET PO SCH ×2 (08:36→20:58)
[2022-11-10] MEDS: AMLODIPINE 5MG TABLET PO SCH (08:40)
[2022-11-10] MEDS: FERROUS SULFATE 325MG TABLET PO SCH ×3 (08:41→16:40)
[2022-11-10] MEDS: ARIPIPRAZOLE 5MG TABLET PO SCH ×2 (08:41→16:40)
[2022-11-10] MEDS: ASCORBIC ACID 250 MG TABLET PO SCH (08:41)
[2022-11-10] MEDS: MAGNESIUM OXIDE 400MG TABLET PO SCH ×2 (08:43→16:41)
[2022-11-10 12:00] VITALS: BP 116/49
[2022-11-10 16:00] VITALS: BP 106/49
[2022-11-10] MEDS: LEVOFLOXACIN 250MG TABLET PO SCH (16:38)
[2022-11-10 20:00] VITALS: BP 120/67
[2022-11-11] VITALS: BP 123/50
[2022-11-11 04:00] VITALS: BP 125/47
[2022-11-11 07:31] LABS: MEAN CORPUSCULAR HEMOGLOBIN 30.6 pg (28.0-32.0); MEAN CORPUSCULAR VOLUME 88.1 fL (80.0-94.0); PLATELET 55 x1000/uL (130-400); RED BLOOD CELL COUNT 2.38 mill/uL (4.7-6.1); RED CELL DISTRIBUTION WIDTH 20.2 % (11.6-14.6)
[2022-11-11 07:49] LABS: HEMOGLOBIN 7.3 g/dL (14.0-18.0)
[2022-11-11 07:50] LABS: HEMATOCRIT 20.9 % (42.0-52.0)
[2022-11-11] MEDS: INSULIN LISPRO 100 UNITS/ML SUBCUT SCH ×2 (07:50→13:39)
[2022-11-11] MEDS: FERROUS SULFATE 325MG TABLET PO SCH ×2 (07:50→13:35)
[2022-11-11 08:00] VITALS: BP 123/51
[2022-11-11] MEDS: BLOOD SUGAR DIAGNOSTIC STRIP TEST SCH ×2 (08:02→12:20)
[2022-11-11] MEDS: LACTULOSE 20G/30ML UDC PO SCH ×2 (09:00→13:00)
[2022-11-11] MEDS: RIFAXIMIN 550 MG TABLET PO SCH (09:15)
[2022-11-11] MEDS: ARIPIPRAZOLE 5MG TABLET PO SCH (09:15)
[2022-11-11] MEDS: PANTOPRAZOLE 40MG DR TABLET PO SCH (09:15)
[2022-11-11] MEDS: ASCORBIC ACID 250 MG TABLET PO SCH (09:15)
[2022-11-11] MEDS: AMLODIPINE 5MG TABLET PO SCH (09:15)
[2022-11-11] MEDS: SODIUM BICARBONATE 650 MG TABLET PO SCH ×2 (09:15→13:35)
[2022-11-11] MEDS: MAGNESIUM OXIDE 400MG TABLET PO SCH (09:15)
[2022-11-11 11:41] VITALS: BP 122/50
[2022-11-11] MEDS ORDERED: ABIL5 PO ×2 (12:05→12:08)
[2022-11-11] MEDS ORDERED: PANT40TA51 PO (12:05)
[2022-11-11] MEDS ORDERED: LACT10SO7 PO ×2 (12:05→12:08)
[2022-11-11] MEDS ORDERED: FERR-63 PO (12:05)
[2022-11-11] MEDS ORDERED: AMLO5TAB88 PO (12:05)
[2022-11-11 14:09] VITALS: BP 123/52
== END 2022-11-11 14:44 | DRG 280 ==
LOC: ER 12:02 → MICUSO 18:55 → 6EST 10-16 03:49 → 5WST 10-30 11:03 → 7EST 11-03 21:33 → 6EST 11-04 14:31
PROVIDERS: ADMIT Internal Medicine; ATTEND Internal Medicine
PROC: 30233N1 Transfusion of Nonautologous Red Blood Cells into Peripheral Vein, Percutaneous Approach (ICD-10-PCS; 2022-11-03)
PROC: 30233K1 Transfusion of Nonautologous Frozen Plasma into Peripheral Vein, Percutaneous Approach (ICD-10-PCS; 2022-11-05)
PROC: 0DB78ZX Excision of Stomach, Pylorus, Via Natural or Artificial Opening Endoscopic, Diagnostic (ICD-10-PCS; principal; 2022-11-10)
DX: K70.30 Alcoholic cirrhosis of liver without ascites (principal); E43 Unspecified severe protein-calorie malnutrition; D69.6 Thrombocytopenia, unspecified; D68.9 Coagulation defect, unspecified; N17.9 Acute kidney failure, unspecified; E87.20 Acidosis, unspecified; D63.1 Anemia in chronic kidney disease; E83.51 Hypocalcemia; K76.82 Hepatic encephalopathy; I13.0 Hypertensive heart and chronic kidney disease with heart failure and stage 1 through stage 4 chronic kidney disease, or unspecified chronic kidney disease; I50.20 Unspecified systolic (congestive) heart failure; E87.1 Hypo-osmolality and hyponatremia; L89.612 Pressure ulcer of right heel, stage 2; E11.22 Type 2 diabetes mellitus with diabetic chronic kidney disease; Z20.822 Contact with and (suspected) exposure to COVID-19; R16.1 Splenomegaly, not elsewhere classified; K29.70 Gastritis, unspecified, without bleeding; K76.9 Liver disease, unspecified; E83.42 Hypomagnesemia; E87.5 Hyperkalemia; E88.09 Other disorders of plasma-protein metabolism, not elsewhere classified; N18.30 Chronic kidney disease, stage 3 unspecified; E11.65 Type 2 diabetes mellitus with hyperglycemia; K76.6 Portal hypertension; Z16.12 Extended spectrum beta lactamase (ESBL) resistance; N30.91 Cystitis, unspecified with hematuria; K31.9 Disease of stomach and duodenum, unspecified; I08.1 Rheumatic disorders of both mitral and tricuspid valves; B96.1 Klebsiella pneumoniae [K. pneumoniae] as the cause of diseases classified elsewhere; Z76.5 Malingerer [conscious simulation]; Z79.4 Long term (current) use of insulin; Z68.27 Body mass index [BMI] 27.0-27.9, adult; Z59.00 Homelessness unspecified
CPT/HCPCS: 36415; 71045; 73630; 76700; 76705; 76770; 76856; 80048; 80053; 80061; 80076; 80320; 81003; 82040; 82105; 82140; 82550; 82553; 82607; 82728; 82747; 82962; 83036; 83540; 83550; 83735; 84100; 84134; 84155; 84165; 84439; 84443; 84484; 85014; 85018; 85025; 85027; 85044; 86705; 86709; 86803; 86850; 86900; 86920; 86927; 87186; 87340; 87389; 87426; 88305; 93005; 93306; 93923; 93970; 94640; 97162; 97164; 97166; 97530; 97535; 99285; A6261; C1893; C9113; J0696; J0885; J1815; J2250; J2354; J2704; J3430; J3475; J3490; J7030; J7050; J7060; J7070; P9016; P9017; Q0162; A4315; G0480